=== PATIENT | male | born 1935 | race Caucasian/White ===

== ENCOUNTER → 2017-01-05 | Outpatient (CLI) | payer MEDICARE, BC ==
[~2017-01-05] MED LIST: ASPIRIN ENTERI325 M1 PO; CIPRO PO; COLACE PO; DOXAZOSIN MESYLA4 MG PO; ECOTRIN81 M1 PO; FINASTERIDE5 MG PO; HYDROCODON-ACE1 EAC5 PO; JANUVIA100 MG PO; LO-DOSE ASPIRIN81 M1 PO; METFORMIN HCL1000 M2 PO; SIMVASTATIN40 MG PO; ZESTRIL2.5 M1 PO
--- NOTE | ~2017-01-05 | CR63 ---
[facility] A Service of [facility] & [facility] RADIOLOGY TEXT RESULTS PATIENT: ROLF CARLSON LOCATION: [facility] : 37 UNIT #: [id number] AGE: [address]: Alexander Worthington MD SEX: M ORDER DR: [id number] [facility] [address] [place], [place] [address] [id number] O MR#: [id number] Acc #: [id number] NAME: ROLF CARLSON : 1935 SEX: M STUDY DATE/TIME: 01/05/2017 8:50 UNIT: [facility] ROOM: STUDY DESCRIPTION: CR Chest 2 View Attending Physician: Alexander Worthington M.D. Referring Physician: Alexander Worthington M.D. Ordering Physician: Alexander Worthington M.D. Primary Care Physician: Surjit Munoz D.O. MEDICAL IMAGING REPORT This report is preliminary unless electronic signature is present EXAM PA and lateral chest INDICATION Preop for right knee arthroplasty. COMPARISON No comparisons. FINDINGS There is low volume inspiration with bibasilar atelectasis. Heart size is normal. Tortuous aorta with atherosclerotic calcification. Degenerative change thoracic spine. IMPRESSION No active disease. Dictated by... Gentry Petersen M.D. THIS IS AN ELECTRONICALLY VERIFIED REPORT Gentry Petersen M.D. at 01/06/2017 5:09 PM TEOFILO/daniela TD: 01/05/2017 09:48 JOB #: [id number] MEDICAL IMAGING REPORT Page 1 of 1 COPY
--- NOTE | ~2017-01-05 | EKG ---
PATIENT: ROLF CARLSON UNIT #: [id number] Ventricular Rate: 52 BPM Atrial Rate: 52 BPM P-R Interval: 178 ms QRS Duration: 86 ms Q-T Interval: 454 ms QTC Calculation(Bezet): 422 ms P [place]: 25 degrees Calculated R [place]: 65 degrees Calculated T [place]: 44 degrees Diagnosis Line: Sinus bradycardia Diagnosis Line: Otherwise normal ECG Diagnosis Line: When compared with ECG of 27-DEC-2010 13:32, Diagnosis Line: No significant change was found Diagnosis Line: Confirmed by MIKALA EPPERSON MD ([id number]) on 01/05/2017 Diagnosis Line: 10:19:48 PM INTERPRETING MD: ZEENAT ESPINAL
--- NOTE | ~2017-01-05 | CO ---
Unit #: [id number] #: [id number] Patient: ROLF CARLSON [id number] [address] [place], [place] [address] [id number] O MR#: [id number] NAME: ROLF CARLSON ROOM: Age: 81 Sex: M Admission Date: 01/05/2017 : 1935 Attending Physician: Alexander Worthington M.D. Primary Care Physician: Surjit Munoz D.O. Consultation Date: 01/05/2017 CONSULTATION REPORT REASON FOR CONSULTATION Preoperative medical evaluation prior to right total knee arthroplasty scheduled by Dr. Worthington for 01/19/17. HISTORY OF PRESENT ILLNESS The patient is a 81-year-old male who presents to preprocedure screening for the reasons indicated above. He reports right knee pain 4-5/10 on the pain scale at the time of this interview. He denies chest, arm, neck, jaw pain or pressure. He denies presyncope, syncope, lightheadedness, dizziness, paroxysmal nocturnal dyspnea or orthopnea. He was evaluated for sleep apnea via sleep study "a couple of weeks ago" but does not know the results of the test and tells me that he has not been informed to follow up for results of this test. He does have risk factors for sleep apnea, specifically male sex, age 81 and history of hypertension. He denies history of myocardial infarction, congestive heart failure, CVA, TIA, chronic kidney disease. He is diabetic but does not need insulin at this time. He has been evaluated by Dr. Worthington and scheduled for the above-referenced procedure. PAST MEDICAL HISTORY 1. Risk factors for obstructive sleep apnea. 2. Type 2 diabetes mellitus, non-insulin dependent. 3. Hyperlipidemia. 4. Osteoarthritis. 5. BPH. 6. Hard of hearing. PAST SURGICAL HISTORY 1. TURP. 2. Right knee surgery. The patient denies a personal and family history of complications to anesthesia. SOCIAL HISTORY The patient denies tobacco use and illicit drug use. The patient consumes two beers a month. FAMILY HISTORY Unknown as the patient states that "they are all ." ALLERGIES The patient denies latex allergy. The patient is allergic to sulfa medications which cause nausea. Unit #: [id number] #: [id number] Patient: ROLF CARLSON CURRENT MEDICATIONS 1. Simvastatin 40 mg p.o. every evening. 2. Metformin HCL ER 1,000 mg p.o. b.i.d. 3. Zestril 2.5 mg p.o. every morning. 4. Januvia 100 mg p.o. every evening. 5. Low dose aspirin EC 81 mg p.o. every evening. REVIEW OF SYSTEMS A 10-point review of systems is conducted and negative except as indicated under history of present illness above. PHYSICAL EXAMINATION GENERAL APPEARANCE: A 81-year-old female awake, alert, markedly flat affect in no acute distress. VITAL SIGNS: Temperature 98.7. Heart rate 56. Respiratory rate 16. Blood pressure 147/85. Oxygen saturation 99% on room air. HEENT: Atraumatic, normocephalic. Sclerae anicteric. No discharge from eyes, ears or nares. LYMPHATIC: No preauricular or postauricular, tonsillar, submental, anterior, posterior cervical adenopathy. ENDOCRINE: No thyromegaly, thyroid nodules or tenderness. RESPIRATORY: Clear to auscultation all mckinney bilaterally without wheezes, rhonchi or rales. CARDIOVASCULAR: S1, S2. Regular rate and rhythm without murmur or rub. GASTROINTESTINAL: Bowel sounds positive x4. Soft, nontender, nondistended. EXTREMITIES: No edema, cyanosis or clubbing. MUSCULOSKELETAL: Strength 5/5 all extremities bilaterally to flexion/extension. NEUROLOGIC: Alert, oriented x3, speech clear. Cranial nerves II-XII grossly intact. DIAGNOSTIC STUDIES LABORATORY: WBC 9.5, hemoglobin 15.0, hematocrit 46.5, platelets 169,000. Sodium 139, potassium 4.7, chloride 101, CO2 30, glucose 134, BUN 22, creatinine 1.1, calcium 9.7, AST 19, ALT 22, alkaline phosphatase 59, bilirubin total 1.1, total protein 7.1, albumin 4.1. Urinalysis: Leukocyte esterase 1+, nitrite negative, glucose negative, blood negative, RBC 0 to 2, WBC 2 to 5, bacteria negative, squamous none seen. Culture not indicated. PT 11.7, INR 1.1. MRSA nasal swab screen and blood type pending at this time. IMAGING: Two-view chest x-ray report pending at this time. CARDIOVASCULAR: 12-lead EKG: Sinus bradycardia, otherwise, normal ECG. Ventricular rate 52 beats per minute. IMPRESSION The patient is a 81-year-old male who presents to preprocedure screening for: 1. Preoperative medical evaluation prior to right total knee arthroplasty. The patient's Jara Revised Cardiac Risk Index is equal to 0.4%. This represents the patient's perioperative risk of cardiac , fatal or nonfatal myocardial infarction, cardiopulmonary arrest, arrhythmia and/or pulmonary edema. This has been discussed in detail with the patient. He wishes to proceed with surgery as scheduled at this time. Unit #: [id number] #: [id number] Patient: ROLF CARLSON 2. Obstructive sleep apnea status post outpatient sleep study. Results are pending at this time. We will obtain these results and we will place the patient on CESAR protocol postoperatively. 3. DM2 non-insulin dependent. We will monitor Accu-Cheks, resume oral medications when the patient is tolerating p.o. intake well. Place the patient on low dose sliding scale insulin protocol and hold Metformin per hospital protocol. 4. Hyperlipidemia. Continue statin. 5. BPH status post TURP. We will continue Flomax and monitor for postoperative urinary retention. 6. Hardness of hearing. 7. Flat affect. Thank you for allowing us to participate in the care of this patient. We will gladly follow him for postop medical management pending order of Dr. Worthington and receipt of CESAR results. Dictated by... Andie Lemons A.P.R.N. for Jermaine Hwang/dejuan TD: 01/06/2017 06:45 JOB #: [id number] CONSULTATION REPORT Page 1 of 1 X Andie Lemons APRN CONSULTATION REPORT
[2017-01-05 08:50] LABS: HEMATOCRIT 46.5 % (38.0-50.0); MEAN CELL VOLUME 87.1 FL (83-96); MEAN CORPUSCULAR HEMOGLOBIN 28.1 PG (28-34); MEAN CORPUSCULAR HGB CONC 32.3 g/dL (30-36); MEAN PLATELET VOLUME 10.5 FL (6.5-11.5); RED BLOOD COUNT 5.34 X10e (3.90-5.60); RED CELL DISTRIBUTION WIDTH 13.3 % (11.0-15.5); WHITE BLOOD COUNT 9.5 X10e3 (4.0-10.5)
[2017-01-05 09:01] LABS: INR 1.1; PROTHROMBIN TIME (PATIENT) 11.7 SECONDS (9.6-11.5)
[2017-01-05 09:14] LABS: URINE APPEARANCE CLEAR; URINE BILIRUBIN NEG (NEG); URINE BLOOD NEG (NEG); URINE COLOR YELLOW; URINE GLUCOSE NEG (NEG); URINE KETONE NEG (NEG); URINE LEUKOCYTE ESTERASE 1+ (NEG); URINE NITRATE NEG (NEG); URINE PROTEIN NEG (NEG); URINE SPECIFIC GRAVITY 1.017 (1.003-1.035); URINE UROBILINOGEN 0.2 MG/DL (NEG)
[2017-01-05 09:16] LABS: U HYALINE CASTS AUWI 0-2 /[LPF]; URBCS1 AUWI 0-2 /[HPF] (0-2); URINE BACTERIA AUWI NEG (NEGATIVE); URINE SQUAMOUS EPITHELIAL CELL NONE SEEN /[HPF]
[2017-01-05 09:18] LABS: CULTURE INDICATED? NO
[2017-01-05 09:18] LABS: ALBUMIN SERUM 4.1 g/dL (3.5-5.0); BILIRUBIN,TOTAL 1.1 mg/dL (0.2-2.0); CALCIUM SERUM 9.7 mg/dL (8.4-10.2); CREATININE SERUM 1.1 mg/dL (0.6-1.4); GLOM FILT RATE Estimated 63.5 mL/min (>60); POTASSIUM 4.7 mmol/L (3.5-5.1); PROTEIN TOTAL SERUM 7.1 g/dL (6.0-8.3)
== END | disposition home or self-care (01) ==
LOC: CAMB 07:21
PROVIDERS: Orthopaedic Surgery
DX: Z01.818 Encounter for other preprocedural examination (principal); M17.11 Unilateral primary osteoarthritis, right knee; Z88.2 Allergy status to sulfonamides
CPT/HCPCS: 36415; 71020; 80053; 81003; 85027; 85610; 86850; 86900; 86901; 87070; 93005

== ENCOUNTER → 2017-01-07 | Outpatient (CLI) | payer MEDICARE, BC | END | disposition home or self-care (01) | LOC: CAMB 09:56 | DX: Z01.812 Encounter for preprocedural laboratory examination (principal) | CPT/HCPCS: 83036 ==

== ENCOUNTER 2017-01-19 05:53 | Inpatient (IN) | payer MEDICARE, BC ==
--- NOTE | ~2017-01-19 | DS ---
Unit #: [id number] #: [id number] Patient: ROLF PINEDA [id number] [address] [address] [id number] I MR#: [id number] NAME: ROLF PINEDA ROOM: [facility] Age: 81 Sex: M Admission Date: 01/19/2017 : 1935 Discharge Date: 01/20/2017 Attending Physician: Alexander Worthington M.D. Primary Care Physician: Surjit Munoz D.O. DISCHARGE SUMMARY ADMITTING DIAGNOSIS Right knee osteoarthritis. DISCHARGE DIAGNOSIS Right knee osteoarthritis. HOSPITAL COURSE On 01/19/2017, Mr. Pineda underwent a right total knee arthroplasty. He tolerated the procedure well. He was transported to the fourth floor where he underwent physical therapy, medical management and anticoagulation therapy. He is doing well and is ready to be discharged. DISPOSITION Stable at discharge. Discharge to [facility] rehab. DISCHARGE MEDICATIONS Routine home meds in addition to [facility] 10/325 and aspirin 325 mg p.o. b.i.d. x4 weeks. FOLLOWUP AND INSTRUCTIONS Mr. Pineda is going to be discharged to [facility]. Patient is on aspirin for DVT prophylaxis. No labs are warranted at this time. Physical therapy is to be done for active range of motion, strengthening and progressive ambulation. Patient will be on a walker for four weeks and a cane for an additional two weeks. Followup appointment with Dr. Worthington in six weeks. Please call our office for that appointment date and time. Dictated by... Juliette Panda PAgusA.C. for Jermaine Mathis/bart TD: 01/20/2017 12:08 JOB #: [id number] Unit #: [id number] #: [id number] Patient: ROLF PINEDA DISCHARGE SUMMARY Page 1 of 1 X Juliette Panda DISCHARGE SUMMARY
--- NOTE | ~2017-01-19 | OR ---
Unit #: [id number] #: [id number] Patient: ROLF CARLSON [id number] [address] [place], [place] [address] [id number] I MR#: [id number] NAME: ROLF CARLSON ROOM: [facility] Date of Procedure: 01/19/2017 Admission Date: 01/19/2017 Surgeon: Alexander Worthington M.D. : 1935 Attending Physician: Alexander Worthington M.D. Primary Care Physician: Surjit Munoz D.O. OPERATIVE REPORT PREOPERATIVE DIAGNOSIS Primary localized osteoarthritis of the right knee. POSTOPERATIVE DIAGNOSIS Primary localized osteoarthritis of the right knee. PROCEDURE PERFORMED Right total knee. ASSISTANTS Juliette Panda and Yasmany Can. ANESTHESIA Adductor canal block plus general. ESTIMATED BLOOD LOSS 100 mL. INDICATIONS FOR PROCEDURE This is a 81-year-old with severe pain in the right knee. He has had pain for years. It has gotten progressively worse. The pain limits his walking or standing, interrupts his activities of daily living, and interferes with sleep. He has tried injections and anti-inflammatories with no relief of his discomfort. X-rays show he has [id number] with subchondral sclerosis and periarticular osteophytes. He is brought to the hospital today for a right total knee. DESCRIPTION OF PROCEDURE The patient was brought to the holding room, given 2 g of Ancef. This will be continued postop, but discontinued within 23 hours the start time of surgery. He was then given an adductor canal block, brought back to the operating room, given a general anesthetic. Tourniquet was placed around the right leg. Right leg was prepped and draped in a sterile fashion. Tourniquet was inflated to 250. A straight anterior skin incision was made. The subcutaneous dissected away and a medial arthrotomy was performed. Patella was slid to the side. Osteophytes were removed from the femur. The intramedullary guide was used and a 6-degree valgus cut was made on the distal femur. The femur was sized and found to be a size 5. The anterior-posterior cutting block was applied. Rotation was checked. Then, the anterior and posterior cuts were made along with the chamfer cuts. Proximal tibial cut was made using 0 degree cutting block. It was sized at a 4. The remaining meniscal fragments were Unit #: [id number] #: [id number] Patient: ROLF CARLSON debrided and osteophytes were removed from the posterior femoral condyles. Posterior capsule and periosteum were injected with ropivacaine mixture. After this was done, the trial hole was positioned in the 8 mm insert. The trial femur was applied. The drill holes were made for lugs on the final component. The knee was taken through range of motion, and the patella was found to track properly. All the trials were removed. The drill and punch were used for the tibial tray. The knee was irrigated and dried while the cement was mixed. Then, all 3 components were cemented simultaneously. Once again, it was a size 5 femur cruciate retaining, size 4 tibia, all poly 8 mm thick, and a 41 patella from the [employer] P[employer] Sigma Knee System. Any excess cement was removed and after the cement was hardened, the tourniquet was released. The rest of the ropivacaine mixture was injected. The knee was irrigated with a dilute Betadine solution and then bacitracin. It was then closed using 0 Ethibond in the arthrotomy, 0 and 2-0 Vicryl in the subcutaneous. The skin was closed with a Prineo Dermabond closure. assistant front office manager, Juliette Panda was present throughout the entire case. Dictated by... Jermaine Mathis/junior TD: 01/20/2017 02:20 JOB #: [id number] OPERATIVE REPORT Page 1 of 1 X Alexander Worthington MD PROCEDURE OPERATIVE NOTE
[~2017-01-19 05:53] MED LIST changes: -ASPIRIN ENTERI325 M1 PO; -HYDROCODON-ACE1 EAC5 PO
[2017-01-19 06:57] LABS: INR 1.1; PROTHROMBIN TIME (PATIENT) 11.8 SECONDS (9.6-11.5)
[2017-01-20 04:03] LABS: BASOPHIL% 0.1 % (0-2.5); HEMATOCRIT 38.4 % (38.0-50.0); HEMOGLOBIN 12.4 gm/dL (13.0-16.0); LYMPHOCYTE% 5.3 % (17.0-45.0); MEAN CELL VOLUME 85.7 FL (83-96); MEAN CORPUSCULAR HEMOGLOBIN 27.8 PG (28-34); MEAN CORPUSCULAR HGB CONC 32.4 g/dL (30-36); MEAN PLATELET VOLUME 10.8 FL (6.5-11.5); MONOCYTE# 0.8 X10e3 (0-1.0); MONOCYTE% 4.4 % (3.0-12.0); NEUTROPHIL% 90.2 % (40-75); PLATELET COUNT 150 X10e3 (140-420); RED BLOOD COUNT 4.48 X10e (3.90-5.60); RED CELL DISTRIBUTION WIDTH 13.5 % (11.0-15.5); WHITE BLOOD COUNT 18.8 X10e3 (4.0-10.5)
[2017-01-20 04:04] LABS: DIFF IND YES
[2017-01-20 04:24] LABS: BUN/CREATININE RATIO 24.44; CALCIUM SERUM 8.9 mg/dL (8.4-10.2); CREATININE SERUM 0.9 mg/dL (0.6-1.4); GLOM FILT RATE Estimated 80.9 mL/min (>60); MAGNESIUM 1.6 mg/dL (1.6-3.0); POTASSIUM 4.3 mmol/L (3.5-5.1)
[2017-01-20 04:32] LABS: ANISOCYTOSIS SL; PLATELET ESTIMATE NORMAL (NORMAL)
[2017-01-20] MEDS ORDERED: HYDROCODON-ACE1 EAC5 PO (09:38)
[2017-01-20] MEDS ORDERED: ASPIRIN ENTERI325 M1 PO (09:38)
[2017-01-20 10:24] LABS: URINE SOURCE CLEAN CATCH
[2017-01-20 10:37] LABS: URINE APPEARANCE CLEAR; URINE BILIRUBIN NEG (NEG); URINE BLOOD NEG (NEG); URINE COLOR YELLOW; URINE GLUCOSE 250 MG/DL (NEG); URINE KETONE NEG (NEG); URINE LEUKOCYTE ESTERASE NEG (NEG); URINE NITRATE NEG (NEG); URINE PROTEIN NEG (NEG); URINE SPECIFIC GRAVITY 1.024 (1.003-1.035)
== END 2017-01-20 13:07 | DRG 470 ==
LOC: CSUR 05:53 → CPACUOF 07:50 → CSUR 08:00 → C4B 10:15 → CPACUOF 10:15 → CSUR 10:15 → CPACUOF 12:01 → C4B 12:01
PROVIDERS: Orthopaedic Surgery; Physician Assistant Medical
PROC: 0SRC0J9 Replacement of Right Knee Joint with Synthetic Substitute, Cemented, Open Approach (ICD-10-PCS; principal; 2017-01-19 08:00)
DX: M17.0 Bilateral primary osteoarthritis of knee (principal); E11.9 Type 2 diabetes mellitus without complications; N40.0 Benign prostatic hyperplasia without lower urinary tract symptoms; E78.5 Hyperlipidemia, unspecified; Z87.891 Personal history of nicotine dependence; Z79.82 Long term (current) use of aspirin; G47.33 Obstructive sleep apnea (adult) (pediatric); Z88.2 Allergy status to sulfonamides
CPT/HCPCS: 80048; 81003; 82947; 83735; 85025; 85610; 94760; 94761; 97110; 97116; 97162; C1776; G8978-GP; G8979-GP; G8980-GP; J0131; J0171; J0690; J0735; J1100; J1815; J1885; J2250; J2405; J2795; J3010; J3475

== ENCOUNTER → 2017-01-23 | Outpatient (CLI) | payer MEDICARE, BC ==
[~2017-01-23] MED LIST changes: +ASPIRIN ENTERI325 M1 PO; +HYDROCODON-ACE1 EAC5 PO
[2017-01-23 09:34] LABS: INR 1.3; PROTHROMBIN TIME (PATIENT) 14.3 SECONDS (9.5-12.4)
[2017-01-23 18:21] LABS: BASOPHIL% 0.4 % (0-2.5); DIFF IND NO; EOSINOPHIL# 0.1 X10e3 (0-0.7); HEMATOCRIT 39.8 % (38.0-50.0); HEMOGLOBIN 13.2 gm/dL (13.0-16.0); LYMPHOCYTE# 1.4 X10e3 (1.0-3.5); LYMPHOCYTE% 13.1 % (17.0-45.0); MEAN CELL VOLUME 85.1 FL (83-96); MEAN CORPUSCULAR HEMOGLOBIN 28.3 PG (28-34); MEAN CORPUSCULAR HGB CONC 33.2 g/dL (30-36); MONOCYTE% 8.9 % (3.0-12.0); NEUTROPHIL# 8.5 X10e3 (1.5-7.1); NEUTROPHIL% 76.6 % (40-75); PLATELET COUNT 171 X10e3 (140-420); RED BLOOD COUNT 4.67 X10e (3.90-5.60); RED CELL DISTRIBUTION WIDTH 13.6 % (11.0-15.5)
== END | disposition home or self-care (01) ==
LOC: SLAB 09:14
PROVIDERS: Orthopaedic Surgery
DX: Z51.81 Encounter for therapeutic drug level monitoring (principal); Z79.01 Long term (current) use of anticoagulants; Z96.651 Presence of right artificial knee joint
CPT/HCPCS: 36415; 85025; 85610